=== PATIENT | female | born 2000 | race African-American/Black ===

== ENCOUNTER 2021-03-13 09:30 | Outpatient (CLI) | payer OTHER | END 2021-03-13 09:31 | disposition home or self-care (01) | LOC: CSHULT 09:30 | PROVIDERS: ATTEND Family Medicine | DX: Z34.02 Encounter for supervision of normal first pregnancy, second trimester (principal); Z3A.24 24 weeks gestation of pregnancy | CPT/HCPCS: 76805 ==

== ENCOUNTER 2022-12-05 15:38 | Emergency (ER) | payer OTHER ==
[2022-12-05] MEDS ORDERED: Acetaminophen 325 MG TAB ONE (16:08)
[2022-12-05] MEDS ORDERED: Amoxicillin/Potassium Clav 875 MG TAB ONE (16:08)
[2022-12-05] MEDS ORDERED: Morphine 4 MG/ML VIAL ONE (17:13)
[2022-12-05] MEDS ORDERED: Ondansetron PF 4 MG/2 ML Vial ONE (17:13)
[2022-12-05 17:28] LABS: #Monocytes 0.9 10x3/uL (0.0-1.1); #Neutrophils 12.5 10x3/uL (1.5-8.4); %Basophils 0.2 % (0.0-2.0); %Eosinophils 0.2 % (0.0-6.0); %Lymphocytes 8.1 % (18.0-47.0); %Monocytes 5.8 % (0.0-10.0); %Neutrophils 85.3 % (40.0-75.0); Hemoglobin 10.8 g/dL (12.0-15.5); Mean Corpuscular HGB CONC 33.1 g/dL (32.0-36.0); Mean Corpuscular Hemoglobin 26.5 pg (27.0-33.0); Mean Corpuscular Volume 80.1 fl (81.6-98.3); Mean Platelet Volume 9.8 fl (7.4-10.4); Platelet Count 407 10x3/uL (150-450); RBC Distribution Width 16.4 % (11.5-14.5); Red Blood Cell (RBC) Count 4.07 10x6/uL (3.90-5.03); White Blood Cell (WBC) Count 14.7 10x3/uL (3.5-10.5)
[2022-12-05 17:32] LABS: ALT (SGPT) 11 U/L (8-55); AST (SGOT) 18 U/L (5-34); Albumin 3.8 g/dL (3.5-5.0); Alkaline Phosphatase 69 U/L (40-110); Anion Gap 11 mmol/L (10-20); BUN (Urea Nitrogen) 12 mg/dL (7.0-18.7); Bilirubin, Total 0.2 mg/dL (0.2-1.2); Calc. Creatinine Clearance 0 mL/min (70-130); Calcium 9.4 mg/dL (7.8-10.44); Carbon Dioxide 19 mmol/L (22-29); Chloride 108 mmol/L (98-107); Estimated GFR 96; Globulin 3.6 g/dL (2.4-3.5); Glucose 95 mg/dL (70-105); Potassium 3.8 mmol/L (3.5-5.1); Protein, Total 7.4 g/dL (6.0-8.3); Sodium 134 mmol/L (136-145)
[2022-12-05 18:33] LABS: PTT 23.7 sec (22.0-33.0); Prothrombin Time 10.5 sec (9.5-12.1)
[2022-12-05 18:45] LABS: Bilirubin Neg (Negative); Blood, Urine 10 (Negative); Clarity Slightly Cloudy (Clear); Glucose, Urine (Dipstick) Normal (Negative); Ketone, Urine Negative (Negative); Leukocyte Negative (Negative); Nitrite Negative (Negative); Protein, Urine (Dipstick) 30 mg/dl (Neg-Trace); Urobilinogen Normal mg/dL (Less than 2)
[2022-12-05 18:52] LABS: Calcium Oxalate Crystals 1+ HPF (None Seen)
[2022-12-05 18:53] LABS: Bacteria/HPF 3+ HPF (None Seen); RBC/HPF 0-3 HPF (0-3); WBC/HPF 0-3 HPF (0-3)
[2022-12-05 18:54] LABS: Mucous/LPF 3+ LPF (<2+)
== END 2022-12-05 18:21 | disposition short-term general hospital (02) ==
LOC: CSHERS 15:38
DX: O9A.211 Injury, poisoning and certain other consequences of external causes complicating pregnancy, first trimester (principal); S60.552A Superficial foreign body of left hand, initial encounter; Z3A.01 Less than 8 weeks gestation of pregnancy; V89.2XXA Person injured in unspecified motor-vehicle accident, traffic, initial encounter
CPT/HCPCS: 29125; 80053; 81003; 81015; 84702; 85025; 85610; 85730; 86850; 86900; 86901; 96374; 96375; G0390; J2270; J2405